=== PATIENT | male | born 2000 | race Two or more races ===

== ENCOUNTER 2023-07-14 16:00 | Outpatient (RCR) | payer OTHER, SELFPAY | END 2024-01-21 10:52 | disposition home or self-care (01) | LOC: HO.PTCHIC 16:00 | PROVIDERS: PCP Internal Medicine; Visit Provider Internal Medicine | DX: S39.011D Strain of muscle, fascia and tendon of abdomen, subsequent encounter (principal) | CPT/HCPCS: 97014; 97110; 97140; 97161; 97530 ==

== ENCOUNTER 2024-01-16 11:25 | Outpatient (AMB) | payer OTHER, SELFPAY ==
--- NOTE | 2024-01-16 13:03 | AM.OFFWIN_ITS ---
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 Reports that he had pain immediately. Initially it was in the entire ankle however it is now in his lateral ankle and lateral aspect of the foot. He is having a hard time walking. Limited range of motion. Ankle continues to be swollen. Has tried ice and ibuprofen at home along with wearing a brace that he had on hand without any relief. He has not had any medical care until today. Exam Left foot is neurovascularly intact. He has limited range of motion of the ankle in all directions. He has edema around the lateral malleolus & talus. He has pain with tenderness on the anterior aspect of the ankle, lateral malleolus, in 4th and 5th metatarsal. Antalgic gait, only able to bear weight with the ankle in pronation. Plan X-rays today reviewed by myself, no fractures; Rad read pending. Orthopedic referral. Crutches and a walking boot. Prescribed NSAIDs to help with the pain. Use as directed. Take with food. Do not mix with any [id number] pain relievers. It is okay to continue to use ice and Tylenol for breakthrough pain. Follow-up with The orthopedic doctor. This note is constructed using voice recognition software. While every effort has been made to ensure accuracy in bushing and broach operator, still errors may have been included Sometimes, these errors may affect the content or meaning of the given sentence . Total time spent caring for the patient today was 30 minutes. This includes time spent before the visit reviewing the chart, time spent during the visit, and time spent after the visit on documentation [facility] Social History Patient Tobacco Use Status: Never used Tobacco Physical Exam Vital Signs: Last Vital Signs Temp 98.0 F 01/16/24 13:04 Pulse 87 01/16/24 13:04 BP 100/64 01/16/24 13:04 Pulse Ox 98 01/16/24 13:04 Oxygen Delivery Method Room Air 01/16/24 13:04 BMI result Body Mass Index 32.4 Assessment & Plan Assessment & Plan (1) Left ankle sprain: Code(s): S93.402A - Sprain of unspecified ligament of left ankle, initial encounter Qualifiers: Encounter type: initial encounter Involved ligament of ankle: calcaneofibular ligament Qualified Code(s): S93.412A - Sprain of calcaneofibular ligament of left ankle, initial encounter Plan: . (2) Pain in left ankle: Code(s): M25.572 - Pain in left ankle and joints of left foot Qualifiers: Chronicity: acute Qualified Code(s): M25.572 - Pain in left ankle and joints of left foot Plan: . (3) Pain in left foot: Code(s): M79.672 - Pain in left foot Plan: . Orders: Orders XR ankle LT 2V Today M25.572 - Pain in left ankle and joints of left foot, M79.672 - Pain in left foot Referrals Orthopedics Referral M25.572 - Pain in left ankle and joints of left foot, M79.672 - Pain in left foot Medications: New diclofenac sodium 50 mg PO Q12H PRN 20 tabs 0RF pain Coding Level of Care Code Est Pt Level 4 (58066) Diagnoses Sprain of calcaneofibular ligament of left ankle, initial encounter S93.412A Encounter type: initial encounter Involved ligament of ankle: calcaneofibular ligament Acute left ankle pain M25.572 Chronicity: acute Pain in left foot M79.672
[2024-01-16 13:04] VITALS: BP 100/64; PULSE 87; TEMP 36.7; O2SAT 98; BMI 32.4
== END 2024-01-16 13:37 | disposition home or self-care (01) ==
PROVIDERS: PCP Internal Medicine; Visit Provider Nurse Practitioner Family
DX: S93.412A Sprain of calcaneofibular ligament of left ankle, initial encounter (principal); M25.572 Pain in left ankle and joints of left foot; M79.672 Pain in left foot
CPT/HCPCS: 99214

== ENCOUNTER 2024-01-16 13:34 | Outpatient (REF) | payer OTHER, SELFPAY ==
--- NOTE | ~2024-01-16 | XR_ITS ---
EXAMINATION: XR FOOT, LEFT CLINICAL INFORMATION: Left ankle pain COMPARISON: None available. TECHNIQUE: AP, lateral, and oblique views of the left foot. FINDINGS: The bones and soft tissues are normal. No fracture. Alignment is anatomic. Joint spaces are maintained. XR/XR foot LT min 3V IMPRESSION: Normal left foot. Electronically signed by: Jovanna Castaneda MD 01/17/2024 07:42 AM EDT
--- NOTE | ~2024-01-16 | XR_ITS ---
EXAMINATION: XR ANKLE, LEFT CLINICAL INFORMATION: Left ankle pain COMPARISON: None available. TECHNIQUE: AP, lateral, and mortise views of the left ankle. FINDINGS: No fracture. Alignment is anatomic. No erosions. Joint spaces are maintained. Soft tissues are normal. XR/XR ankle LT 2V IMPRESSION: Normal left ankle. Electronically signed by: Jovanna Castaneda MD 01/17/2024 07:42 AM EDT
== END 2024-01-16 13:35 | disposition home or self-care (01) ==
LOC: HO.HMGCX 13:34
PROVIDERS: PCP Internal Medicine; Visit Provider Nurse Practitioner Family
DX: M25.572 Pain in left ankle and joints of left foot (principal); M79.672 Pain in left foot
CPT/HCPCS: 73600; 73630

== ENCOUNTER 2024-04-27 15:35 | Outpatient (AMB) | payer OTHER, SELFPAY ==
--- NOTE | 2024-04-27 15:58 | MHC.OFFWIV ---
Intake Vital Signs 04/27/24 16:03 Height 5 ft 6 in Weight 206 lb BMI 33.2 BP 114/70 Blood Pressure Location Lt brachial Position Sitting Pulse 101 H Pulse Source Pulse Oximeter Temp 99.5 F Temp Source Oral Pulse Oximetry (%) 96 Oxygen Delivery Method Room Air Intake Visit Reasons: EP vomiting, fever, chills Intake Note: Patient here for cough, vomiting, body aches and mild headaches which has been present for a few days. Today his symptoms have worsened. Patient Tobacco Use Status: Never used Tobacco Allergies No Known Allergies Allergy (Verified 04/27/24 16:04) Do you need a note to return to daycare/school/sports/work: Yes HPI EP vomiting, fever, chills HPI Details This note is constructed using voice recognition software. While every effort has been made to ensure accuracy, vice president & general manager [employer] [place] errors may have been included. The patient is a 23 year old male who presents to the clinic today with fever, chills, vomiting, body aches, congestion for the past 4 day. He has been working through the illness. He has been taking Tylenol, Motrin, Pedialyte, hydration, TheraFlu, NyQuil with mild relief of symptoms. He denies cough, shortness of breath. [facility] Social History Patient Tobacco Use Status: Never used Tobacco Review of Systems Const All systems reviewed & are unremarkable except as noted in HPI and below Physical Exam Vital Signs: Last Vital Signs Temp 99.5 F 04/27/24 16:03 Pulse 101 H 04/27/24 16:03 BP 114/70 04/27/24 16:03 Pulse Ox 96 04/27/24 16:03 Oxygen Delivery Method Room Air 04/27/24 16:03 BMI result Body Mass Index 33.2 Const General: cooperative, healthy appearing, comfortable and no acute distress Orientation/consciousness: patient oriented x3 Limitations: no limitations HEENT Head: Yes normal to inspection Ears: hearing grossly normal bilaterally, external ears normal and TM's normal bilaterally General nose exam: Normal external nose present, Normal nares present and No nasal discharge present Face and sinus: Yes normal facial exam and Yes sinuses nontender Mouth: Normal oral and palatal mucosa present and moist mucous membranes Throat: Yes tonsils normal, Yes uvula midline and Yes posterior oropharynx abnormal (Erythema) Eyes General: appearance normal, both eyes and all related structures Neck Neck: Yes normal visual inspection Resp Effort & Inspection: normal respiratory effort, able to speak in complete sentences, Actively coughing, no respiratory distress, not tachypneic, no tripod positioning and no use of accessory muscles Auscultation: clear to auscultation bilaterally Cardio Jugular venous distension: no JVD Rate: regular rate Rhythm: regular rhythm Heart sounds: S1 normal heart sound present, S2 normal heart sound present, no click, no gallops, no murmurs and no rubs Skin General skin exam: no rashes or lesions noted, elasticity normal and turgor normal Neuro General: patient oriented x3 Extrem General: Yes normal to inspection and Yes no clubbing, cyanosis or edema Assessment & Plan Assessment & Plan (1) Flu-like symptoms: Code(s): R68.89 - Other general symptoms and signs Plan: Viral swab obtained to rule out Covid, Influenza, and RSV based on symptoms. Advised mask wearing while symptomatic and quarantine per current CDC guidelines. Reviewed at home support methods including hydration, humidification, vix vapor rub, sinus rinse, and otc treatment options. Discussed treatment with antiviral therapy for covid with paxlovid and with Tamiflu for influenza, including appropriate use and side effects, and need to start medication within 5 day of symptom onset, preferably within 48 hours of symptom onset. Patient wishes to proceed with decline tamiflu therapy. Advised follow up with worsening symptoms such as dyspnea at rest, which would require emergent evaluation. Plan See above for full details and plan. Orders: Orders SARS-CoV2/FLU/RSV Today J06.9 - Acute upper respiratory infection, unspecified Coding Level of Care Code Est Pt Level 3 (19036) Diagnoses Flu-like symptoms R68.89
[2024-04-27 16:03] VITALS: BP 114/70; PULSE 101; TEMP 37.5; O2SAT 96; BMI 33.2
--- OUTSIDE RECORDS SUMMARY | 2024-04-27 16:06 | XMS_ITS ---
Author Name [facility] Organization Unknown History of Medication Use Medication Directions Dispensed Refills Start Date End Date Status Barium Sulfate (LIQUID E-Z-PAQUE) 60 % suspension 20 mL 20 mL, Oral, IMG once as needed, contrast, Starting on 02/22/24 at 1125, For 1 doseLot #: [id number] n Date: 05/11/2025 05/10/99 99 completed No known medications No known medications 4 05/10/99 99 active amoxicillin 875 mg tablet 4 completed montelukast 10 mg tablet Take 1 tablet every day by oral route. 4 completed sucralfate 1 gram tablet Take 1 tablet(s) 4 times a day by oral route as needed. 4 completed metoclopramide 10 mg tablet TAKE 1 TABLET BY MOUTH TWICE A DAY NEEDED FOR NAUSEA AND VOMITING 4 completed zsfwfnte-eimxtpgfw-zldc ocort 3.5 mg-10,000 unit/mL-1 % ear drops,susp INSTILL 3 DROPS INTO THE LEFT EAR 4 TIMES A DAY FOR 7 DAYS 4 completed methocarbamol 750 mg tablet TAKE 2 TABLETS BY MOUTH EVERY 6 HOURS NEEDED FOR ANALGESIA 4 completed methylprednisolone 4 mg tablets in a dose pack TAKE 6 TABLETS ON DAY 1 DIRECTED ON PACKAGE AND DECREASE BY 1 TAB EACH DAY FOR A TOTAL OF 6 DAYS 4 completed oxycodone 5 mg capsule TAKE 1 CAPSULE BY MOUTH EVERY 6 HOURS NEEDED FOR PAIN , PARTIAL FILL UPON REQUEST 4 completed acetaminophen 500 mg tablet TAKE 2 TABLETS BY MOUTH EVERY 8 HOURS 4 active albuterol sulfate HFA 90 mcg/actuation aerosol inhaler INHALE 2 PUFFS EVERY 4 HOURS 4 active docusate sodium 100 mg capsule TAKE 1 CAPSULE BY MOUTH TWICE A DAY 4 completed fluticasone propionate 50 mcg/actuation nasal spray,suspension SPRAY 1 SPRAY INTO EACH NOSTRIL TWICE A DAY FOR 30 DAYS 4 completed omeprazole 20 mg capsule,delayed release 01/04/20 2 4 completed pantoprazole 40 mg tablet,delayed release Take 1 tablet every day by oral route. 4 active oxycodone 5 mg tablet 4 completed loratadine 10 mg tablet TAKE 1 TABLET BY MOUTH EVERY DAY 4 completed albuterol sulfate 2.5 mg/3 mL (0.083 %) solution for nebulization Inhale 3 mL 3 times a day by nebulization route. 4 active naloxone 4 mg/actuation nasal spray 4 completed prednisone 20 mg tablet TAKE 3 PILLS DAILY FOR 3 DAYS THEN 2 PILLS DAILY FOR 3 DAYS THEN 1 PILL DAILY FOR 3 DAYS 4 completed ondansetron 4 mg disintegrating tablet 4 completed cyclobenzaprine 10 mg tablet 4 active Problems Problem Status Onset Date Problem Type Date of Resolution Source Asthma active 2023-04-28 ProblemAct [facility] A Strain of abdominal muscle active 2023-06-09 ProblemAct [facility] Abdominal pain active 2024-01-01 ProblemAct [facility]_ [facility]IV[facility] Nausea with vomiting, unspecified active EncounterDiagnosisAct [facility]S FARHEEN Gastro-esophageal reflux disease without esophagitis active EncounterDiagnosisAct [facility]S FARHEEN
== END 2024-04-27 16:39 | disposition home or self-care (01) ==
PROVIDERS: PCP Internal Medicine; Visit Provider Registered Nurse
DX: R68.89 Other general symptoms and signs (principal)

== ENCOUNTER 2024-04-27 15:35 | Outpatient (REF) | payer OTHER, SELFPAY ==
[2024-04-28 12:32] LABS: Influenza A PCR NEGATIVE (Negative); Influenza B PCR POSITIVE (Negative); Resp Syncy Virus RNA Qual PCR NEGATIVE (Negative); SARS COV2 PCR INHOUSE NEGATIVE (Negative)
== END 2024-04-27 15:36 | disposition home or self-care (01) ==
LOC: HO.LAB 15:35
PROVIDERS: PCP Internal Medicine; Visit Provider Registered Nurse
DX: J06.9 Acute upper respiratory infection, unspecified (principal)
CPT/HCPCS: 0241U